=== PATIENT | female | born 1950 | race Caucasian/White ===

== ENCOUNTER 2019-06-14 23:36 | Inpatient (IN) | payer MEDICAID, OTHER ==
[~2019-06-14] VITALS: Ht 175.3 cm; Wt 124.3 kg
[~2019-06-14 23:36] MED LIST: APIX5TAB PO; AUD NEB; BISA10SU11 PR; FOLI1 PO; HALOD100I IM; HUMLIS7525 SQ; HYDR-3971 PO; HYDR15SO4 PO; IBUP-2070 PO; LACT30L PO; LISI-662 PO; LORA10TA7 PO; NUT.237L33 PO; OMEP20 PO; THIA100T67 PO; [UNRECOGNIZED DRUG - CODE] TP
[2019-06-15] MEDS ORDERED: ASPI-728 PO (01:11)
[2019-06-15] MEDS ORDERED: SENN8.6T20 PO (01:11)
[2019-06-15] MEDS ORDERED: FLUT16H NASAL (01:11)
[2019-06-15] MEDS ORDERED: ZOLP5 PO (01:11)
[2019-06-15] MEDS ORDERED: ONDA-104 PO (01:11)
[2019-06-15 02:01] LABS: BASOPHILS % (AUTO) 0.6 % (0.0-2.0); EOSINOPHILS % (AUTO) 2.8 % (1.0-6.0); HEMATOCRIT 38.3 % (36-46); HEMOGLOBIN 12.5 g/dL (12.0-16.0); LYMPHOCYTES # (AUTO) 2.8 K/uL (1.0-4.8); LYMPHOCYTES % (AUTO) 26.9 % (22.0-44.0); MEAN CORPUSCULAR HEMOGLOBIN 27.2 pg (26.0-34.0); MEAN CORPUSCULAR HGB CONC 32.5 G/dL (31.0-37.0); MEAN CORPUSCULAR VOLUME 84 fL (80-100); MONOCYTES # (AUTO) 0.7 K/uL (0.1-1.0); MONOCYTES % (AUTO) 6.3 % (2.0-9.0); NEUTROPHILS # (AUTO) 6.7 K/uL (1.8-7.7); NEUTROPHILS % (AUTO) 63.4 % (40.0-70.0); PLATELET COUNT (AUTO) 190 K/uL (150-450); RED BLOOD CELL COUNT(AUTO) 4.58 MIL/uL (4.00-5.20); RED CELL DISTRIBUTION WIDTH 14.7 % (11.5-14.5)
[2019-06-15 02:10] LABS: CREATININE 1.34 mg/dL (0.60-1.30); POTASSIUM 4.6 mmol/L (3.5-5.1)
[2019-06-15 02:19] LABS: BILIRUBIN,TOTAL 0.2 mg/dL (0.1-1.0); TOTAL PROTEIN, SERUM 6.8 g/dL (6.4-8.2)
[2019-06-15 02:36] LABS: APPEARANCE,URINE CLEAR (CLEAR); BILIRUBIN,URINE NEGATIVE (NEGATIVE); GLUCOSE, URINE (UA) NEGATIVE (NEGATIVE); KETONES,URINE NEGATIVE (NEGATIVE); LEUKOCYTE ESTERASE ,URINE NEGATIVE (NEGATIVE); NITRATE,URINE NEGATIVE (NEGATIVE); OCCULT BLOOD,URINE NEGATIVE (NEGATIVE); PROTEIN,URINE NEGATIVE (NEGATIVE); UROBILINOGEN,URINE 0.2 mg/dL (<=1.0)
[2019-06-15] MEDS ORDERED: SODIUM CHLORIDE 0.9% 500 ML IV ONE (02:45)
[2019-06-15] MEDS ORDERED: IOVERSOL 320 MG/ML 100 ML VIAL ONE (02:56)
[2019-06-15] MEDS ORDERED: SODIUM CHLORIDE 0.9% 100 ML ONE (02:57)
[2019-06-15] MEDS ORDERED: CefTRIAXone 1 GM/DEXTROSE 50 ML IV ONE (03:00)
[2019-06-15] MEDS ORDERED: SULFAMETHOX/TRIMETH 10 ML in DEXTROSE 5%-WATER 250 ML IV ONE (03:00)
[2019-06-15] MEDS ORDERED: MORPHINE SULFATE 2 MG/ML SYRINGE IVP ONE (03:30)
[2019-06-15] MEDS ORDERED: 0.9% SODIUM CHLORIDE 10 ML SYRINGE IVP PRN (06:00)
[2019-06-15] MEDS ORDERED: ACETAMINOPHEN 325 MG TABLET PO PRN ×2 (06:00→10:00)
[2019-06-15] MEDS ORDERED: ONDANSETRON HCL 4 MG/2 ML VIAL IVP PRN (06:00)
[2019-06-15 07:30] LABS: GLUCOSE,POINT OF CARE 209 MG/DL (70-110)
[2019-06-15 08:00] VITALS: BP 120/83
[2019-06-15] MEDS ORDERED: ZOLPIDEM TARTRATE 5 MG TABLET PO PRN (10:00)
[2019-06-15] MEDS ORDERED: OxyCODONE HCL/ACETAMINOPHEN 5-325 MG TABLET PO PRN (10:00)
[2019-06-15] MEDS ORDERED: DEXTROSE 50%-WATER 25 GM/50 ML SYRINGE IVP PRN (10:00)
[2019-06-15] MEDS ORDERED: SODIUM CHLORIDE 0.9% 1,000 ML IV ONE (10:15)
[2019-06-15] MEDS ORDERED: VANCOMYCIN HCL 750 MG in DEXTROSE 5%-WATER 250 ML IV ONE (11:00)
[2019-06-15] MEDS: PIPERACILLIN/TAZO 3.375 GM/D5W 50 ML IV SCH ×4 (11:00→22:16)
[2019-06-15 11:45] VITALS: BP 125/62
[2019-06-15] MEDS ORDERED: ONDANSETRON HCL 4 MG/2 ML VIAL IVP ONE (12:00)
[2019-06-15] MEDS ORDERED: SUCCINYLCHOLINE CHLORIDE 20 MG/ML 10 ML VIAL IVP ONE (12:00)
[2019-06-15] MEDS ORDERED: DEXAMETHASONE SOD PHOS 4 MG/ML VIAL IVP ONE (12:00)
[2019-06-15] MEDS ORDERED: PROPOFOL 1% 20 ML VIAL IVP ONE (12:00)
[2019-06-15] MEDS ORDERED: LIDOCAINE/PF 2% 5 ML SYRINGE IVP ONE (12:00)
[2019-06-15] MEDS ORDERED: FentaNYL CITRATE-PF 100 MCG/2 ML VIAL IVP ONE (12:00)
[2019-06-15] MEDS ORDERED: FentaNYL CITRATE-PF 100 MCG/2 ML VIAL IVP PRN ×2 (13:45)
[2019-06-15] MEDS ORDERED: MEPERIDINE-PF 25 MG/ML VIAL IVP PRN ×2 (13:45)
[2019-06-15] MEDS ORDERED: HYDROmorphone 2 MG/ML SYRINGE IVP PRN ×2 (13:45)
[2019-06-15] MEDS ORDERED: INSU100V SQ (13:49)
[2019-06-15] MEDS ORDERED: ASPI-629 PO (13:49)
[2019-06-15] MEDS ORDERED: HYDROCODONE/ACETAMINOPHEN 5-325 MG TABLET PO PRN (16:30)
[2019-06-15] MEDS ORDERED: IBUPROFEN 800 MG TABLET PO PRN (16:30)
[2019-06-15] MEDS ORDERED: HYDROmorphone 2 MG/ML SYRINGE ONE (17:01)
[2019-06-15] MEDS ORDERED: SODIUM CHLORIDE 0.9% 250 ML IV ONE (17:46)
[2019-06-15] MEDS: HEPARIN SODIUM,PORCINE 5,000 UNITS/ML VIAL SQ SCH ×2 (17:56→23:28)
[2019-06-15] MEDS: VANCOMYCIN HCL 750 MG in DEXTROSE 5%-WATER 250 ML IV SCH (18:21)
[2019-06-15 18:53] LABS: GLUCOMETER DEV NAME(LOC) 6N.2; GLUCOSE,POINT OF CARE 224 MG/DL (70-110)
[2019-06-15] MEDS ORDERED: OXYGEN THERAPY IH SCH (20:00)
[2019-06-15 20:17] VITALS: BP 144/75
[2019-06-15] MEDS: DOCUSATE SODIUM 100 MG CAPSULE PO SCH (21:35)
[2019-06-15] MEDS: INSULIN LISPRO 100 UNITS/ML SQ PRN (21:42)
[2019-06-15] MEDS: MORPHINE SULFATE 2 MG/ML SYRINGE IVP PRN (22:14)
[2019-06-15 22:35] LABS: GLUCOMETER DEV NAME(LOC) 6N.2; GLUCOSE,POINT OF CARE 296 MG/DL (70-110)
[2019-06-16] MEDS ORDERED: ONDANSETRON HCL 4 MG/2 ML VIAL IVP PRN (00:15)
[2019-06-16 00:21] VITALS: BP 126/63
[2019-06-16 04:35] VITALS: BP 137/82
[2019-06-16] MEDS: MORPHINE SULFATE 2 MG/ML SYRINGE IVP PRN ×2 (04:59→08:53)
[2019-06-16] MEDS: PIPERACILLIN/TAZO 3.375 GM/D5W 50 ML IV SCH ×3 (05:01→12:06)
[2019-06-16] MEDS: INSULIN LISPRO 100 UNITS/ML SQ PRN ×4 (06:49→22:46)
[2019-06-16 07:25] LABS: GLUCOMETER DEV NAME(LOC) 6N.2; GLUCOSE,POINT OF CARE 303 MG/DL (70-110)
[2019-06-16] MEDS: VANCOMYCIN HCL 750 MG in DEXTROSE 5%-WATER 250 ML IV SCH (07:25)
[2019-06-16] MEDS ORDERED: SODIUM CHLORIDE 0.9% 250 ML IV ONE (07:28)
[2019-06-16 07:36] VITALS: BP 131/80
[2019-06-16 07:49] LABS: CALCIUM, TOTAL 8.8 mg/dL (8.8-10.5); CREATININE 1.42 mg/dL (0.60-1.30); POTASSIUM 4.6 mmol/L (3.5-5.1); VANCOMYCIN,RANDOM 5.7 mcg/mL (25.0-50.0)
[2019-06-16] MEDS: OXYGEN THERAPY IH SCH (08:00)
[2019-06-16] MEDS: HEPARIN SODIUM,PORCINE 5,000 UNITS/ML VIAL SQ SCH ×3 (08:52→23:48)
[2019-06-16] MEDS: ASPIRIN 81 MG CHEWABLE TABLET PO SCH (08:53)
[2019-06-16] MEDS: DOCUSATE SODIUM 100 MG CAPSULE PO SCH ×2 (08:53→21:36)
[2019-06-16] MEDS: FAMOTIDINE 20 MG TABLET PO SCH (08:53)
[2019-06-16] MEDS: NYSTATIN 15 GM POWDER BOTTLE TP SCH (09:25)
[2019-06-16] MEDS: SULFAMETHOX/TRIMETH DS 800-160 MG/TABLET PO SCH ×2 (13:32→21:35)
[2019-06-16 15:55] LABS: GLUCOMETER DEV NAME(LOC) 6N.2; GLUCOSE,POINT OF CARE 272 MG/DL (70-110)
[2019-06-16 17:12] VITALS: BP 101/41
[2019-06-16] MEDS: GlipiZIDE 5 MG TABLET PO SCH (17:45)
[2019-06-16 20:16] VITALS: BP 150/85
[2019-06-16 22:55] LABS: GLUCOMETER DEV NAME(LOC) 6N.2; GLUCOSE,POINT OF CARE 298 MG/DL (70-110)
[2019-06-16 22:55] LABS: GLUCOMETER DEV NAME(LOC) 6N.2; GLUCOSE,POINT OF CARE 175 MG/DL (70-110)
[2019-06-17 03:45] VITALS: BP 133/67
[2019-06-17] MEDS: GlipiZIDE 5 MG TABLET PO SCH ×2 (06:15→17:24)
[2019-06-17] MEDS: INSULIN LISPRO 100 UNITS/ML SQ PRN ×4 (06:20→20:35)
[2019-06-17 07:17] LABS: GLUCOMETER DEV NAME(LOC) 6N.2; GLUCOSE,POINT OF CARE 180 MG/DL (70-110)
[2019-06-17 07:48] VITALS: BP 145/69
[2019-06-17] MEDS: OXYGEN THERAPY IH SCH ×2 (08:00→20:00)
[2019-06-17 08:06] LABS: CALCIUM, TOTAL 8.7 mg/dL (8.8-10.5); CREATININE 1.23 mg/dL (0.60-1.30); POTASSIUM 4.2 mmol/L (3.5-5.1)
[2019-06-17] MEDS: SULFAMETHOX/TRIMETH DS 800-160 MG/TABLET PO SCH ×2 (08:35→20:35)
[2019-06-17] MEDS: HEPARIN SODIUM,PORCINE 5,000 UNITS/ML VIAL SQ SCH ×3 (08:35→23:38)
[2019-06-17] MEDS: ASPIRIN 81 MG CHEWABLE TABLET PO SCH (08:35)
[2019-06-17] MEDS: DOCUSATE SODIUM 100 MG CAPSULE PO SCH ×2 (08:36→20:35)
[2019-06-17] MEDS: FAMOTIDINE 20 MG TABLET PO SCH (08:36)
[2019-06-17] MEDS: NYSTATIN 15 GM POWDER BOTTLE TP SCH (08:36)
[2019-06-17 11:12] LABS: GLUCOMETER DEV NAME(LOC) 6N.2; GLUCOSE,POINT OF CARE 202 MG/DL (70-110)
[2019-06-17 11:33] VITALS: BP 138/68
[2019-06-17 16:26] VITALS: BP 104/83
[2019-06-17 20:05] VITALS: BP 119/59
[2019-06-17 23:46] VITALS: BP 128/52
[2019-06-18 03:32] LABS: GLUCOMETER DEV NAME(LOC) 6N.2; GLUCOSE,POINT OF CARE 233 MG/DL (70-110)
[2019-06-18 03:32] LABS: GLUCOMETER DEV NAME(LOC) 6N.2; GLUCOSE,POINT OF CARE 227 MG/DL (70-110)
[2019-06-18 04:10] VITALS: BP 123/74
[2019-06-18] MEDS: GlipiZIDE 5 MG TABLET PO SCH ×2 (06:22→17:20)
[2019-06-18] MEDS: INSULIN LISPRO 100 UNITS/ML SQ PRN ×4 (06:23→21:17)
[2019-06-18 06:56] LABS: BASOPHILS % (AUTO) 0.6 % (0.0-2.0); EOSINOPHILS % (AUTO) 3.5 % (1.0-6.0); HEMATOCRIT 36.9 % (36-46); HEMOGLOBIN 11.9 g/dL (12.0-16.0); LYMPHOCYTES # (AUTO) 1.2 K/uL (1.0-4.8); LYMPHOCYTES % (AUTO) 20.1 % (22.0-44.0); MEAN CORPUSCULAR HEMOGLOBIN 27.3 pg (26.0-34.0); MEAN CORPUSCULAR HGB CONC 32.3 G/dL (31.0-37.0); MEAN CORPUSCULAR VOLUME 85 fL (80-100); MONOCYTES # (AUTO) 0.4 K/uL (0.1-1.0); MONOCYTES % (AUTO) 7.1 % (2.0-9.0); NEUTROPHILS # (AUTO) 4.1 K/uL (1.8-7.7); NEUTROPHILS % (AUTO) 68.7 % (40.0-70.0); PLATELET COUNT (AUTO) 166 K/uL (150-450); RED BLOOD CELL COUNT(AUTO) 4.36 MIL/uL (4.00-5.20); RED CELL DISTRIBUTION WIDTH 14.9 % (11.5-14.5)
[2019-06-18 07:46] VITALS: BP 128/75
[2019-06-18 07:57] LABS: GLUCOMETER DEV NAME(LOC) 6N.2; GLUCOSE,POINT OF CARE 171 MG/DL (70-110)
[2019-06-18 07:57] LABS: GLUCOMETER DEV NAME(LOC) 6N.2; GLUCOSE,POINT OF CARE 168 MG/DL (70-110)
[2019-06-18] MEDS: HEPARIN SODIUM,PORCINE 5,000 UNITS/ML VIAL SQ SCH ×3 (08:26→23:31)
[2019-06-18] MEDS: SULFAMETHOX/TRIMETH DS 800-160 MG/TABLET PO SCH ×2 (08:26→20:51)
[2019-06-18] MEDS: FAMOTIDINE 20 MG TABLET PO SCH (08:26)
[2019-06-18] MEDS: ASPIRIN 81 MG CHEWABLE TABLET PO SCH (08:26)
[2019-06-18] MEDS: DOCUSATE SODIUM 100 MG CAPSULE PO SCH ×2 (08:26→20:51)
[2019-06-18] MEDS: OXYGEN THERAPY IH SCH ×2 (08:27→20:00)
[2019-06-18] MEDS: NYSTATIN 15 GM POWDER BOTTLE TP SCH (08:27)
[2019-06-18 09:11] LABS: AFP (TUMOR MARKER) 1.6 ng/mL (0.0-8.3); CANCER ANTIGEN 125 14.8 U/mL (0.0-38.1)
[2019-06-18 11:23] VITALS: BP 137/50
[2019-06-18 12:48] LABS: GLUCOMETER DEV NAME(LOC) 6N.2; GLUCOSE,POINT OF CARE 166 MG/DL (70-110)
[2019-06-18 15:50] VITALS: BP 113/48
[2019-06-18 17:24] LABS: GLUCOMETER DEV NAME(LOC) 6N.2; GLUCOSE,POINT OF CARE 196 MG/DL (70-110)
[2019-06-18 19:32] LABS: CALCIUM, TOTAL 8.5 mg/dL (8.8-10.5); CREATININE 1.56 mg/dL (0.60-1.30); POTASSIUM 3.9 mmol/L (3.5-5.1)
[2019-06-18 20:00] VITALS: BP 108/53
[2019-06-18] MEDS: MAGNESIUM HYDROXIDE SUSPENSION 30 ML UDCUP PO PRN (20:51)
[2019-06-18 21:34] LABS: GLUCOMETER DEV NAME(LOC) 6N.2; GLUCOSE,POINT OF CARE 240 MG/DL (70-110)
[2019-06-19 00:19] VITALS: BP 103/53
[2019-06-19 05:43] VITALS: BP 128/59
[2019-06-19] MEDS ORDERED: SODIUM CHLORIDE 0.9% 1,000 ML IV ONE (05:45)
[2019-06-19] MEDS: GlipiZIDE 5 MG TABLET PO SCH ×2 (05:48→17:12)
[2019-06-19] MEDS: INSULIN LISPRO 100 UNITS/ML SQ PRN ×4 (05:51→20:38)
[2019-06-19] MEDS ORDERED: BUPIVACAINE HCL 0.25% 50 ML VIAL ONE (06:50)
[2019-06-19] MEDS ORDERED: MEPERIDINE-PF 25 MG/ML VIAL IVP PRN (07:00)
[2019-06-19] MEDS ORDERED: FentaNYL CITRATE-PF 100 MCG/2 ML VIAL IVP PRN (07:00)
[2019-06-19 07:05] LABS: GLUCOMETER DEV NAME(LOC) 6N.2; GLUCOSE,POINT OF CARE 119 MG/DL (70-110)
[2019-06-19] MEDS: HEPARIN SODIUM,PORCINE 5,000 UNITS/ML VIAL SQ SCH ×3 (08:00→23:24)
[2019-06-19] MEDS ORDERED: SODIUM CHLORIDE 0.9% 1,000 ML ONE (08:58)
[2019-06-19] MEDS ORDERED: DOCUSATE SODIUM 100 MG CAPSULE PO PRN (09:45)
[2019-06-19] MEDS ORDERED: ZOLPIDEM TARTRATE 5 MG TABLET PO PRN (09:45)
[2019-06-19] MEDS ORDERED: ACETAMINOPHEN 325 MG TABLET PO PRN ×2 (09:45)
[2019-06-19] MEDS ORDERED: MORPHINE SULFATE 10 MG/ML SYRINGE IVP PRN (09:45)
[2019-06-19] MEDS ORDERED: DOCUSATE SODIUM 250 MG CAPSULE PO PRN (09:45)
[2019-06-19] MEDS ORDERED: CLINDAMYCIN 600 MG/D5% WATER 50 ML IV SCH (09:45)
[2019-06-19] MEDS ORDERED: HYDROmorphone 2 MG/ML SYRINGE IVP PRN (09:45)
[2019-06-19] MEDS ORDERED: MetroNIDAZOLE 500 MG/NACL 100 ML IV SCH ×2 (09:45)
[2019-06-19] MEDS ORDERED: MORPHINE SULFATE 2 MG/ML SYRINGE IVP PRN (09:45)
[2019-06-19] MEDS ORDERED: HYDROCODONE/ACETAMINOPHEN 5-325 MG TABLET PO PRN ×3 (09:45)
[2019-06-19] MEDS ORDERED: BISACODYL 10 MG RECTAL RECTAL SUPPOSITORY PR PRN (09:45)
[2019-06-19] MEDS ORDERED: MEPERIDINE-PF 25 MG/ML VIAL ONE (10:05)
[2019-06-19] MEDS ORDERED: HYDROmorphone 2 MG/ML SYRINGE ONE (10:06)
[2019-06-19] MEDS: HYDROmorphone 2 MG/ML SYRINGE IVP PRN ×2 (10:09→10:20)
[2019-06-19 10:16] LABS: GLUCOMETER DEV NAME(LOC) SDS.; GLUCOSE,POINT OF CARE 203 MG/DL (70-110)
[2019-06-19] MEDS ORDERED: ONDANSETRON HCL 4 MG/2 ML VIAL ONE (10:29)
[2019-06-19] MEDS: ONDANSETRON HCL 4 MG/2 ML VIAL PO PRN ×2 (10:33→17:21)
[2019-06-19 11:30] VITALS: BP 147/73
[2019-06-19] MEDS: RINGERS SOLUTION,LACTATED 1,000 ML IV SCH ×2 (12:11→19:17)
[2019-06-19] MEDS: FAMOTIDINE 20 MG TABLET PO SCH (12:18)
[2019-06-19] MEDS: ASPIRIN 81 MG CHEWABLE TABLET PO SCH (12:18)
[2019-06-19] MEDS: SULFAMETHOX/TRIMETH DS 800-160 MG/TABLET PO SCH (12:18)
[2019-06-19] MEDS: DOCUSATE SODIUM 100 MG CAPSULE PO SCH ×2 (12:19→20:23)
[2019-06-19] MEDS: NYSTATIN 15 GM POWDER BOTTLE TP SCH (12:25)
[2019-06-19 13:09] LABS: GLUCOMETER DEV NAME(LOC) 6N.2; GLUCOSE,POINT OF CARE 256 MG/DL (70-110)
[2019-06-19 16:14] VITALS: BP 142/75
[2019-06-19] MEDS: OXYGEN THERAPY IH SCH ×2 (17:02→20:00)
[2019-06-19 19:15] VITALS: BP 150/77
[2019-06-19 20:03] LABS: GLUCOMETER DEV NAME(LOC) 6S.1; GLUCOSE,POINT OF CARE 270 MG/DL (70-110)
[2019-06-19] MEDS: CIPROFLOXACIN HCL 500 MG TABLET PO SCH (20:23)
[2019-06-19] MEDS: MAGNESIUM HYDROXIDE SUSPENSION 30 ML UDCUP PO PRN (20:23)
[2019-06-19 21:23] LABS: GLUCOMETER DEV NAME(LOC) 6S.1; GLUCOSE,POINT OF CARE 290 MG/DL (70-110)
[2019-06-19 23:09] VITALS: BP 132/69
[2019-06-20] MEDS: RINGERS SOLUTION,LACTATED 1,000 ML IV SCH (04:44)
[2019-06-20 05:12] VITALS: BP 144/62
[2019-06-20] MEDS ORDERED: PROPOFOL 1% 20 ML VIAL IVP ONE (05:48)
[2019-06-20] MEDS ORDERED: LIDOCAINE/PF 2% 5 ML SYRINGE IVP ONE (05:48)
[2019-06-20] MEDS ORDERED: EPHEDrine SULFATE 50 MG/ML VIAL IM ONE (05:48)
[2019-06-20] MEDS ORDERED: ROCURONIUM BROMIDE 10 MG/ML 5 ML VIAL IVP ONE (05:48)
[2019-06-20] MEDS ORDERED: ONDANSETRON HCL 4 MG/2 ML VIAL IVP ONE (05:48)
[2019-06-20] MEDS ORDERED: FentaNYL CITRATE-PF 100 MCG/2 ML VIAL IVP ONE (05:48)
[2019-06-20] MEDS ORDERED: SUCCINYLCHOLINE CHLORIDE 20 MG/ML 10 ML VIAL IVP ONE (05:48)
[2019-06-20] MEDS ORDERED: DEXAMETHASONE SOD PHOS 4 MG/ML VIAL IVP ONE (05:48)
[2019-06-20] MEDS: GlipiZIDE 5 MG TABLET PO SCH ×2 (06:02→17:13)
[2019-06-20] MEDS: INSULIN LISPRO 100 UNITS/ML SQ PRN ×3 (06:03→21:25)
[2019-06-20 06:56] LABS: GLUCOMETER DEV NAME(LOC) 6S.1; GLUCOSE,POINT OF CARE 119 MG/DL (70-110)
[2019-06-20 07:10] LABS: BASOPHILS % (AUTO) 0.6 % (0.0-2.0); EOSINOPHILS % (AUTO) 0.7 % (1.0-6.0); HEMATOCRIT 32.5 % (36-46); HEMOGLOBIN 10.7 g/dL (12.0-16.0); LYMPHOCYTES # (AUTO) 1.6 K/uL (1.0-4.8); LYMPHOCYTES % (AUTO) 20.5 % (22.0-44.0); MEAN CORPUSCULAR HEMOGLOBIN 27.7 pg (26.0-34.0); MEAN CORPUSCULAR HGB CONC 32.9 G/dL (31.0-37.0); MEAN CORPUSCULAR VOLUME 84 fL (80-100); MONOCYTES # (AUTO) 0.7 K/uL (0.1-1.0); MONOCYTES % (AUTO) 8.3 % (2.0-9.0); NEUTROPHILS # (AUTO) 5.5 K/uL (1.8-7.7); NEUTROPHILS % (AUTO) 69.9 % (40.0-70.0); PLATELET COUNT (AUTO) 166 K/uL (150-450); RED BLOOD CELL COUNT(AUTO) 3.86 MIL/uL (4.00-5.20); RED CELL DISTRIBUTION WIDTH 14.7 % (11.5-14.5)
[2019-06-20 07:29] VITALS: BP 117/58
[2019-06-20 07:47] LABS: CALCIUM, TOTAL 8.4 mg/dL (8.8-10.5); CREATININE 1.34 mg/dL (0.60-1.30); POTASSIUM 4.1 mmol/L (3.5-5.1)
[2019-06-20] MEDS: OXYGEN THERAPY IH SCH ×2 (08:00→21:11)
[2019-06-20] MEDS: CIPROFLOXACIN HCL 500 MG TABLET PO SCH ×2 (08:56→21:10)
[2019-06-20] MEDS: DOCUSATE SODIUM 100 MG CAPSULE PO SCH ×2 (08:58→21:10)
[2019-06-20] MEDS: NYSTATIN 15 GM POWDER BOTTLE TP SCH (08:58)
[2019-06-20] MEDS: FAMOTIDINE 20 MG TABLET PO SCH (08:58)
[2019-06-20] MEDS: ASPIRIN 81 MG CHEWABLE TABLET PO SCH (08:58)
[2019-06-20] MEDS: HEPARIN SODIUM,PORCINE 5,000 UNITS/ML VIAL SQ SCH ×2 (08:58→17:13)
[2019-06-20] MEDS ORDERED: ENOXAPARIN SODIUM 30 MG/0.3 ML PF SYRINGE SQ SCH (09:00)
[2019-06-20] MEDS ORDERED: HEPARIN SODIUM,PORCINE 5,000 UNITS/ML VIAL SQ SCH (09:00)
[2019-06-20] MEDS ORDERED: ENOXAPARIN SODIUM 40 MG/0.4 ML PF SYRINGE SQ SCH (09:00)
[2019-06-20 11:26] VITALS: BP 141/74
[2019-06-20 13:41] LABS: GLUCOMETER DEV NAME(LOC) 6S.1; GLUCOSE,POINT OF CARE 121 MG/DL (70-110)
[2019-06-20 15:32] VITALS: BP 137/70
[2019-06-20] MEDS ORDERED: ASPI-728 PO (16:13)
[2019-06-20] MEDS ORDERED: DOCU-275 PO (16:13)
[2019-06-20] MEDS ORDERED: CIPR-278 PO (16:16)
[2019-06-20] MEDS ORDERED: FAMO20 PO (16:18)
[2019-06-20] MEDS ORDERED: HEPA500018 SQ (16:19)
[2019-06-20] MEDS ORDERED: GLIP5 PO (16:19)
[2019-06-20] MEDS ORDERED: NYST30CR9 TP (16:21)
[2019-06-20] MEDS ORDERED: ACET-3207 PO (16:22)
[2019-06-20] MEDS ORDERED: BISA10SU11 PR (16:23)
[2019-06-20] MEDS ORDERED: HYDR-4061 PO (16:30)
[2019-06-20] MEDS ORDERED: IBUP-1506 PO (16:31)
[2019-06-20] MEDS ORDERED: MOM30 PO (16:32)
[2019-06-20] MEDS ORDERED: PERCT PO (16:34)
[2019-06-20 20:38] VITALS: BP 125/78
[2019-06-20 20:45] LABS: GLUCOMETER DEV NAME(LOC) 6S.1; GLUCOSE,POINT OF CARE 221 MG/DL (70-110)
[2019-06-21] MEDS: HEPARIN SODIUM,PORCINE 5,000 UNITS/ML VIAL SQ SCH ×4 (00:03→23:46)
[2019-06-21 00:06] VITALS: BP 112/73
[2019-06-21] MEDS: MAGNESIUM HYDROXIDE SUSPENSION 30 ML UDCUP PO PRN ×3 (02:29→20:54)
[2019-06-21 05:11] VITALS: BP 136/73
[2019-06-21 05:41] LABS: GLUCOMETER DEV NAME(LOC) 6S.1; GLUCOSE,POINT OF CARE 233 MG/DL (70-110)
[2019-06-21] MEDS: GlipiZIDE 5 MG TABLET PO SCH ×2 (07:04→17:17)
[2019-06-21 07:40] VITALS: BP 134/61
[2019-06-21] MEDS: OXYGEN THERAPY IH SCH (08:00)
[2019-06-21 08:22] LABS: GLUCOMETER DEV NAME(LOC) 6S.1; GLUCOSE,POINT OF CARE 161 MG/DL (70-110)
[2019-06-21] MEDS: DOCUSATE SODIUM 100 MG CAPSULE PO SCH ×2 (08:40→20:54)
[2019-06-21] MEDS: ASPIRIN 81 MG CHEWABLE TABLET PO SCH (08:41)
[2019-06-21] MEDS: CIPROFLOXACIN HCL 500 MG TABLET PO SCH ×2 (08:41→20:54)
[2019-06-21] MEDS: FAMOTIDINE 20 MG TABLET PO SCH (08:41)
[2019-06-21] MEDS: NYSTATIN 15 GM POWDER BOTTLE TP SCH (08:42)
[2019-06-21] MEDS: INSULIN LISPRO 100 UNITS/ML SQ PRN ×3 (11:39→20:55)
[2019-06-21 13:02] LABS: GLUCOMETER DEV NAME(LOC) 6S.1; GLUCOSE,POINT OF CARE 188 MG/DL (70-110)
[2019-06-21 16:22] VITALS: BP 127/55
[2019-06-21 19:06] LABS: GLUCOMETER DEV NAME(LOC) 6S.1; GLUCOSE,POINT OF CARE 166 MG/DL (70-110)
[2019-06-21 20:00] VITALS: BP 155/72
[2019-06-21] MEDS ORDERED: BISACODYL 10 MG RECTAL RECTAL SUPPOSITORY PR PRN (22:45)
[2019-06-21] MEDS ORDERED: MORPHINE SULFATE 2 MG/ML SYRINGE IVP PRN (23:00)
[2019-06-21] MEDS: BISACODYL 5 MG EC TABLET PO SCH (23:46)
[2019-06-21] MEDS: SENNA 187 MG TABLET PO SCH (23:46)
[2019-06-22] VITALS: BP 151/70
[2019-06-22 00:19] LABS: GLUCOMETER DEV NAME(LOC) 4E.2; GLUCOSE,POINT OF CARE 233 MG/DL (70-110)
[2019-06-22] MEDS: GlipiZIDE 5 MG TABLET PO SCH ×2 (05:44→17:08)
[2019-06-22] MEDS: INSULIN LISPRO 100 UNITS/ML SQ PRN ×4 (05:45→21:10)
[2019-06-22 06:39] VITALS: BP 114/55
[2019-06-22] MEDS: OXYGEN THERAPY IH SCH ×2 (08:00→21:03)
[2019-06-22 08:28] VITALS: BP 122/61
[2019-06-22] MEDS: SENNA 187 MG TABLET PO SCH ×2 (08:47→21:03)
[2019-06-22] MEDS: DOCUSATE SODIUM 100 MG CAPSULE PO SCH ×2 (08:47→21:02)
[2019-06-22] MEDS: BISACODYL 5 MG EC TABLET PO SCH ×2 (08:47→21:02)
[2019-06-22] MEDS: CIPROFLOXACIN HCL 500 MG TABLET PO SCH ×2 (08:47→21:02)
[2019-06-22] MEDS: HEPARIN SODIUM,PORCINE 5,000 UNITS/ML VIAL SQ SCH ×2 (08:47→17:08)
[2019-06-22] MEDS: FAMOTIDINE 20 MG TABLET PO SCH (08:47)
[2019-06-22] MEDS: ASPIRIN 81 MG CHEWABLE TABLET PO SCH (08:47)
[2019-06-22 11:51] VITALS: BP 124/64
[2019-06-22 11:57] LABS: GLUCOMETER DEV NAME(LOC) 4E.2; GLUCOSE,POINT OF CARE 173 MG/DL (70-110)
[2019-06-22] MEDS: NYSTATIN 15 GM POWDER BOTTLE TP SCH (12:14)
[2019-06-22 15:28] VITALS: BP 125/56
[2019-06-22 15:53] LABS: GLUCOMETER DEV NAME(LOC) 6N.1; GLUCOSE,POINT OF CARE 215 MG/DL (70-110)
[2019-06-22 19:00] LABS: GLUCOMETER DEV NAME(LOC) 6N.1; GLUCOSE,POINT OF CARE 144 MG/DL (70-110)
[2019-06-22 20:46] VITALS: BP 153/74
[2019-06-23] VITALS (7 sets, daily range): BP systolic 115–136; BP diastolic 51–76
[2019-06-23 01:04] LABS: GLUCOMETER DEV NAME(LOC) 4E.2; GLUCOSE,POINT OF CARE 229 MG/DL (70-110)
[2019-06-23] MEDS: HEPARIN SODIUM,PORCINE 5,000 UNITS/ML VIAL SQ SCH ×3 (01:33→15:25)
[2019-06-23] MEDS: GlipiZIDE 5 MG TABLET PO SCH ×2 (06:54→17:08)
[2019-06-23] MEDS: INSULIN LISPRO 100 UNITS/ML SQ PRN ×3 (07:06→17:19)
[2019-06-23 07:45] LABS: GLUCOMETER DEV NAME(LOC) 4E.2; GLUCOSE,POINT OF CARE 145 MG/DL (70-110)
[2019-06-23] MEDS: OXYGEN THERAPY IH SCH ×2 (08:00→20:00)
[2019-06-23] MEDS: FAMOTIDINE 20 MG TABLET PO SCH (08:57)
[2019-06-23] MEDS: BISACODYL 5 MG EC TABLET PO SCH ×2 (08:57→20:45)
[2019-06-23] MEDS: SENNA 187 MG TABLET PO SCH ×2 (08:58→20:45)
[2019-06-23] MEDS: DOCUSATE SODIUM 100 MG CAPSULE PO SCH ×2 (08:58→20:45)
[2019-06-23] MEDS: CIPROFLOXACIN HCL 500 MG TABLET PO SCH ×2 (08:58→20:45)
[2019-06-23] MEDS: ASPIRIN 81 MG CHEWABLE TABLET PO SCH (08:58)
[2019-06-23] MEDS: NYSTATIN 15 GM POWDER BOTTLE TP SCH (09:18)
[2019-06-23 12:44] LABS: GLUCOMETER DEV NAME(LOC) 4E.2; GLUCOSE,POINT OF CARE 210 MG/DL (70-110)
[2019-06-23 18:33] LABS: GLUCOMETER DEV NAME(LOC) 4E.2; GLUCOSE,POINT OF CARE 214 MG/DL (70-110)
[2019-06-24] MEDS: HEPARIN SODIUM,PORCINE 5,000 UNITS/ML VIAL SQ SCH ×3 (01:30→16:29)
[2019-06-24 05:19] VITALS: BP 141/68
[2019-06-24] MEDS: INSULIN LISPRO 100 UNITS/ML SQ PRN ×3 (05:21→11:16)
[2019-06-24 06:21] LABS: GLUCOMETER DEV NAME(LOC) 4E.2; GLUCOSE,POINT OF CARE 207 MG/DL (70-110)
[2019-06-24] MEDS: GlipiZIDE 5 MG TABLET PO SCH ×2 (06:55→16:28)
[2019-06-24 07:16] LABS: GLUCOMETER DEV NAME(LOC) 6N.1; GLUCOSE,POINT OF CARE 192 MG/DL (70-110)
[2019-06-24] MEDS: OXYGEN THERAPY IH SCH (08:00)
[2019-06-24] MEDS: DOCUSATE SODIUM 100 MG CAPSULE PO SCH (08:13)
[2019-06-24] MEDS: SENNA 187 MG TABLET PO SCH (08:13)
[2019-06-24] MEDS: FAMOTIDINE 20 MG TABLET PO SCH (08:13)
[2019-06-24] MEDS: CIPROFLOXACIN HCL 500 MG TABLET PO SCH (08:13)
[2019-06-24] MEDS: ASPIRIN 81 MG CHEWABLE TABLET PO SCH (08:13)
[2019-06-24] MEDS: BISACODYL 5 MG EC TABLET PO SCH (08:13)
[2019-06-24 08:14] VITALS: BP 135/70
[2019-06-24] MEDS: NYSTATIN 15 GM POWDER BOTTLE TP SCH (08:14)
[2019-06-24 11:38] VITALS: BP 124/57
[2019-06-24 15:26] LABS: GLUCOMETER DEV NAME(LOC) 4E.2; GLUCOSE,POINT OF CARE 235 MG/DL (70-110)
[2019-06-24 15:57] VITALS: BP 126/60
== END 2019-06-24 17:00 | DRG 951 ==
LOC: EMS 23:37 → 6N 06-15 05:30 → 4E 06-21 18:56
PROVIDERS: ADMIT Internal Medicine; ATTEND Internal Medicine
PROC: 0JB80ZZ Excision of Abdomen Subcutaneous Tissue and Fascia, Open Approach (ICD-10-PCS; 2019-06-15)
PROC: 0UB64ZZ Excision of Left Fallopian Tube, Percutaneous Endoscopic Approach (ICD-10-PCS; 2019-06-19)
PROC: 0U914ZZ Drainage of Left Ovary, Percutaneous Endoscopic Approach (ICD-10-PCS; 2019-06-19)
PROC: 0UT24ZZ Resection of Bilateral Ovaries, Percutaneous Endoscopic Approach (ICD-10-PCS; principal; 2019-06-19 07:15)
DX: K65.1 Peritoneal abscess (principal); E44.0 Moderate protein-calorie malnutrition; D69.6 Thrombocytopenia, unspecified; E66.01 Morbid (severe) obesity due to excess calories; E11.65 Type 2 diabetes mellitus with hyperglycemia; F20.9 Schizophrenia, unspecified; N83.202 Unspecified ovarian cyst, left side; Z68.41 Body mass index [BMI] 40.0-44.9, adult; L03.311 Cellulitis of abdominal wall; L02.215 Cutaneous abscess of perineum; R13.10 Dysphagia, unspecified; I10 Essential (primary) hypertension; K66.0 Peritoneal adhesions (postprocedural) (postinfection); R19.00 Intra-abdominal and pelvic swelling, mass and lump, unspecified site; D25.9 Leiomyoma of uterus, unspecified; Z91.19 Patient's noncompliance with other medical treatment and regimen; Z86.718 Personal history of other venous thrombosis and embolism; Z86.73 Personal history of transient ischemic attack (TIA), and cerebral infarction without residual deficits; Z83.3 Family history of diabetes mellitus; Z82.49 Family history of ischemic heart disease and other diseases of the circulatory system; Z74.01 Bed confinement status; Z88.6 Allergy status to analgesic agent
CPT/HCPCS: 74177; 76830; 76856; 82105; 86304; 87040; 87070; 87081; 87205; 88108; 88142; 88304; 88305; 88307; 93005; 97110; 97161; 97166; G0238; G0378; J0330; J0690; J0696; J1100; J1170; J1644; J2175; J2270; J2405; J2543; J2704; J3010; J3370; J3490; J7030; J7040; J7050; J7060; J7120